=== PATIENT | male | born 1970 | race Caucasian/White ===

== ENCOUNTER 2017-03-26 19:40 | Emergency (ER) | payer OTHER ==
[~2017-03-26] VITALS: Ht 190.5 cm; Wt 130.5 kg
[2017-03-26 19:44] VITALS: BP 160/94; PULSE 72; RESP 16; O2SAT 96
--- NOTE | 2017-03-26 20:01 | ED.REPORT ---
HPI-Chest Pain 40 and Over Date of Service Mar 26, 2017 ED Provider: Talat Polk MD Patient is a 46 year old male with a history of SVT who presents to the ED complaining of waxing and waning substernal chest pain onset 6 days ago that is not associated with exertion. Associated symptoms include intermittent palpitations, dizziness, fatigue and shortness of breath. He denies nausea, diaphoresis, fever, radiating neck, back or jaw pain, vomiting or cough. The patient reports that the pain started while at rest. He states that when the intense episodes happen, they last a few minutes. Nursing Notes Stated Complaint: CHEST PAIN Chief Complaint: Chest Pain Nursing Notes Reviewed: Yes Allergies: Coded Allergies: No Known Allergies (Unverified , 03/26/17) General Time Seen by MD: 20:00 Chief Complaint Chest pain Hx Obtained From: Patient Arrived By: Walk-in Sudden in Onset?: Yes Onset Occurred: 1 week ago Symptom Duration: Waxes and wanes Location: : Substernal Quality: Painful Radiation: : Does not radiate Recent Healthcare: No recent hospitalization Risk Factors HEART Score HEART for MACE: Low index of susp (0), Normal ECG (0), Age under 45 (0), 1-2 CAD risk factors (1), < or = to NL troponin (0) HEART for MACE Score: 0-3 (low risk 0.9%-1.7%) PERC Rule PERC Result: All PERC criteria "No" Past Medical History Past Medical History SVT Family History dad-CHF Smoking History Current Every Day Smoker Social History Other Social History: Good social support, Ambulatory Status Independent Review of Systems Constitutional: Reports: Fatigue, Denies: Chills, Fever Respiratory: Reports: Shortness of breath, Denies: Hemoptysis, Non-productive cough Cardiovascular: Reports: Chest pain, Palpitations GI: Denies: Nausea, Vomiting Musculoskeletal: Denies: Back pain, Neck pain Skin: Denies Itching, Denies Rash Neurologic: Denies: Numbness, Problem walking, Weakness Complete sys rev & neg: except as marked. Physical Exam Initial Vital Signs Vital Signs (First) Date Time Temp Pulse Resp B/P Pulse Ox O2 Delivery O2 Flow Rate FiO2 03/26/17 19:44 37.1 72 16 160/94 96 Room Air Initial VS: Reviewed General/Constitutional: Awake, Alert, No acute distress Respiratory / Chest: Atraumatic, Breath sounds NL, Breath sounds = bilat, No respiratory distress Cardiovascular: Heart rate NL, Regular rhythm, Heart sounds NL Abdomen: Atraumatic, Soft, Non-tender Skin: Atraumatic, Color NL, No rash, Warm, Dry Neurologic: Oriented X3, Speech NL, No motor deficits, No sensory deficits Psychiatric: Affect NL, Mood NL Head / Eyes: Atraumatic, Normocephalic, PERRL, EOMI Upper Extremity / MS: Atraumatic, Full range of motion Interpretation & Diagnostics Lab Results Interpretation Result Diagram: 03/26/17199903/26/171999 Test 03/26/17 20:00 White Blood Count 8.5th/mm3 (3.8-10.1) Red Blood Count 4.73mil/mm3 (4.40-5.80) Hemoglobin 15.4g/dL (13.8-17.2) Hematocrit 43.8% (41.0-50.0) Mean Corpuscular Volume 92.6fL (81-100) Mean Corpuscular Hemoglobin 32.6pg (27.0-35.0) Mean Corpuscular Hemoglobin Concent 35.2% (32.0-37.0) Red Cell Distribution Width 12.4% (12.3-15.4) Platelet Count 172bil/L (150-400) Neutrophils (%) (Auto) 55.5% (40-74) Lymphocytes (%) (Auto) 35.2% (14-46) Monocytes (%) (Auto) 6.1% (4-12) Eosinophils (%) (Auto) 3.0% (0-5) Basophils (%) (Auto) 0.1% (0-3) Sodium Level 138mEq/L (134-144) Potassium Level 3.9mEq/L (3.5-5.2) Chloride Level 100mEq/L (97-108) Carbon Dioxide Level 21mmol/L (18-29) Blood Urea Nitrogen 15mg/dL (6-24) Creatinine 1.02mg/dL (0.76-1.27) Estimat Glomerular Filtration Rate 84mL/min (>59) Glucose Level 142mg/dL (60-99) Calcium Level 9.0mg/dL (8.5-10.1) Magnesium Level 2.0mg/dL (1.6-2.6) Total Bilirubin 0.2mg/dL (0.0-1.2) Aspartate Amino Transf (AST/SGOT) 23U/L (0-50) Alanine Aminotransferase (ALT/SGPT) 38U/L (0-44) Alkaline Phosphatase 69U/L (25-150) Troponin T < 0.010ug/L (0.0-0.011) Total Protein 7.0g/dL (6.4-8.4) Albumin 4.3g/dL (3.4-5.0) Hold Hester Top Tube Received (Received) ECG Interpretation Time: 20:02 Interpreted by: ED physician Normal ECG Interpretation: Normal rate (74), Normal sinus rhythm X-Ray Chest Interpretation Chest Xray Interpretation: IMPRESSION: No acute cardiopulmonary disease. Dictated by: Mamadou Toure M.D. on 03/26/2017 at 20:47 Approved by: Mamadou Toure M.D. on 03/26/2017 at 20:48 View: Portable, 1 view Interpretation / Wet Read by: Interpret - Radiologist Re-Eval/Medical Decision Time of Eval: 20:58 Re-Evaluation/Progress Note: Discussed all results and plan for discharge. Patient understands and agrees to the plan. All questions were addressed. Counseled Regarding: Diagnosis, Lab results, Need for follow-up, When/why to return to ED Discharge & Departure Primary Impression: Chest pain Chest pain type: unspecified Qualified Code: R07.9 - Chest pain, unspecified Disposition: Home Discharge Condition All VS Reviewed: Yes Condition: Stable Patient Instructions: Chest Pain (ED) Additional Instructions: No dangerous cause for your pain was discovered today. Follow-up with your doctor next week to consider further evaluation for the symptoms you have been experiencing. Return to the emergency Department immediately for new or worsening symptoms. Referrals: Tanika Montenegro MD [facility] Scribe Attestation Portions of this note were transcribed by Denisa Galaviz. I, Dr. Polk personally performed the history, physical exam and medical decision-making; I reviewed and confirmed the accuracy of the information in the transcribed note. Signed by: Jeanie Dao, 03/26/17 copies to: Tanika Montenegro MD; [facility] Talat Polk MD Mar 26, 2017 20:01 Leandra Galaviz Mar 26, 2017 20:11
[2017-03-26 20:08] LABS: BASOPHILS % (AUTO) 0.1 % (0-3); MONOCYTES % (AUTO) 6.1 % (4-12); Mean Corpuscular Hemoglobin 32.6 pg (27.0-35.0); Mean Corpuscular Volume 92.6 fL (81-100); NEUTROPHILS % (AUTO) 55.5 % (40-74); Platelet Count 172 bil/L (150-400)
[2017-03-26 20:37] LABS: TROPONIN T < 0.010 ug/L (0.0-0.011)
--- NOTE | 2017-03-26 20:50 | DRSVH ---
PROCEDURE: X-RAY CHEST, TWO VIEWS ([id number]) INDICATIONS: 46 year-old male with right chest pain for one week. TECHNIQUE: 2 views of the chest were acquired. COMPARISON: None. FINDINGS: Surgical changes and devices: None. Lungs and pleura: No pleural effusions or pneumothorax. Lungs are clear. Mediastinum: Mediastinal contours are normal. Heart size is normal. Bones and chest wall: No suspicious bony abnormalities. Soft tissues appear unremarkable. IMPRESSION: No acute cardiopulmonary disease. Dictated by: Mamadou Toure M.D. on 03/26/2017 at 20:47 Approved by: Mamadou Toure M.D. on 03/26/2017 at 20:48
[2017-03-26 20:56] VITALS: BP 135/79; PULSE 68; RESP 16; O2SAT 98
[2017-03-26 20:59] VITALS: BP 135/79; PULSE 68; RESP 16; O2SAT 98
== END 2017-03-26 21:04 | disposition home or self-care (01) ==
LOC: SED 19:40
DX: R07.9 Chest pain, unspecified (principal); F17.200 Nicotine dependence, unspecified, uncomplicated